=== PATIENT | male | born 1965 | race Two or more races ===

== ENCOUNTER → 2018-03-01 | Outpatient (CLI) | payer SELFPAY ==
--- NOTE | 2018-03-01 08:05 | US ---
EXAMINATION TYPE: US venous doppler duplex LE LT DATE OF EXAM: 03/01/2018 7:56 AM COMPARISON: NONE CLINICAL HISTORY: M79.605 Pain in left lower limb. Pain in the left leg. Patient is a dairy truck driver , long-term travel. SIDE PERFORMED: Left TECHNIQUE: The lower extremity deep venous system is examined utilizing real time linear array sonog aurea with graded compression, doppler sonography and color-flow sonography. VESSELS IMAGED: External Iliac Vein (EIV) Common Femoral Vein Deep Femoral Vein Greater Saphenous Vein * Femoral Vein Popliteal Vein Small Saphenous Vein * Proximal Calf Veins (* superficial vessels) Left Leg: Negative for DVT Grayscale, color doppler, spectral doppler imaging performed of the deep veins of the left lower extr emity. There is normal flow, compressibility, vascular waveforms. IMPRESSION: No ultrasound evidence for acute DVT in the left lower extremity.
== END | disposition home or self-care (01) ==
LOC: RADUSWWP 07:37
PROVIDERS: ATTEND Family Medicine
DX: M79.605 Pain in left leg (principal)

== ENCOUNTER 2020-05-27 19:23 | Emergency (ER) | payer SELFPAY ==
[2020-05-27 19:32] VITALS: BP 200/90; PULSE 71; RESP 16; TEMP 98.2
[2020-05-27] MEDS ORDERED: WATER FOR IRRIG, STERILE 1,000 ML BTL IRRIGATION ONE (19:51)
[2020-05-27] MEDS ORDERED: LIDOCAINE 1% INJ 10MG/ML (20 ML MDV) SQ ONE (19:51)
[2020-05-27] MEDS ORDERED: DIPH,PERTUS(ACELL)TETVAC-LF 0.5 ML VIAL IM ONE (19:53)
--- NOTE | 2020-05-27 19:56 | ED ---
Wound/Laceration HPI - General Chief Complaint: Wound/Laceration Stated Complaint: right hand injury Time Seen by Provider: 05/27/20 19:47 Source: patient Mode of arrival: ambulatory Limitations: no limitations - History of Present Illness Initial Comments: 54-year-old male patient presents to the emergency department today for evaluation of laceration to the home all the left hand. Patient states that he was using a knife and cutting towards him and he slipped and the knife cut his palm. Patient states he was able to get the bleeding under control this started to develop bruising around the area and was concerned for infection. He denies any difficulty with range of motion. Denies significant pain to the area. He denies any other injuries. Unsure when his last tetanus vaccine was administered. Patient denies any headache, neck pain, back pain, chest pain, shortness of breath, dizziness, weakness, abdominal pain, nausea, vomiting, or difficulties with bowel movements or urination. Denies any use of anticoagulants or antiplatelet medications. - Related Data Allergies Allergy/AdvReac Type Severity Reaction Status Date / Time No Known Allergies Allergy Verified 05/27/20 19:32 Review of Systems ROS Statement: Those systems with pertinent positive or pertinent negative responses have been documented in the HPI. ROS Other: All systems not noted in ROS Statement are negative. Past Medical History Past Medical History: No Reported History History of Any Multi-Drug Resistant Organisms: None Reported Past Surgical History: No Surgical Hx Reported Past Psychological History: No Psychological Hx Reported Smoking Status: Never smoker Past Alcohol Use History: None Reported Past Drug Use History: None Reported General Exam Limitations: no limitations General appearance: alert, in no apparent distress, other (This is a well- developed, well-nourished adult male patient in no acute distress. Vital signs upon presentation are temperature 98.2F. Pulse 71, respirations 16, blood pressure 200/90, pulse ox 100% on room air.) Respiratory exam: Present: normal lung sounds bilaterally. Absent: respiratory distress, wheezes, rales, rhonchi, stridor Cardiovascular Exam: Present: regular rate, normal rhythm, normal heart sounds. Absent: systolic murmur, diastolic murmur, rubs, gallop, clicks Extremities exam: Present: full ROM, normal capillary refill, other (There is a 3 cm laceration noted to the palmar aspect of the left hand over the hyperthenar eminence. There is no active bleeding. There is mild surrounding ecchymosis. Patient is range of motion of the wrist and fingers. Radial pulses 2+ and equal bilaterally. Skin is otherwise pink warm and dry.). Absent: normal inspection, tenderness, pedal edema, joint swelling, calf tenderness Neurological exam: Present: alert, oriented X3, CN II-XII intact Psychiatric exam: Present: normal affect, normal mood Skin exam: Present: warm, dry, intact, normal color. Absent: rash Course Vital Signs 05/27/20 19:29 Temperature 98.2 F Pulse Rate 71 Respiratory 16 Rate Blood Pressure 200/90 O2 Sat by Pulse 100 Oximetry Procedures - Laceration Laceration #1 Consent Obtained: verbal consent Indication: laceration Site: hand Size (cm): 3 Description: linear Depth: simple, single layer Anesthetic Used: lidocaine 1% Anesthesia Technique: local infiltration Amount (mls): 4 Pre-repair: wound explored, irrigated extensively Type of Sutures: nylon Size of Sutures: 4-0 Number of Sutures: 4 Technique: simple, interrupted Patient Tolerated Procedure: well, no complications Medical Decision Making - Medical Decision Making 54-year-old male patient presents to the emergency department today for evaluat ion of laceration to the left hand. Physical examination did reveal 3 cm laceration to the hyperthenar eminence. Bleeding was controlled. There is some surrounding ecchymosis. Laceration was cleansed and repaired as documented. Patient be discharged to follow-up with his primary care physician for recheck in 1-2 days. Patient is instructed to return in 7 days to have the stitches removed. Return parameters were discussed in detail. He verbalizes understanding and agrees with this plan. Disposition Clinical Impression: Laceration of left hand Disposition: HOME SELF-CARE Condition: Good Instructions (If sedation given, give patient instructions): Care For Your Stitches (ED), Laceration (ED) Additional Instructions: Cleanse wound twice daily with warm water and antibacterial soap. Keep clean and dry. Do not submerge your hand in water. Return in 7 days to have the stitches removed. Monitor for signs or symptoms of infection including but not limited to redness, swelling, drainage of pus, fever, or chills. Follow-up through primary care physician for recheck in 1-2 days. Return to the emergency department immediately for any new, worsening, or concerning symptoms. Is patient prescribed a controlled substance at d/c from ED?: No Referrals: Bi Rooney MD [Primary Care Provider] - 1-2 days Time of Disposition: 20:16
[2020-05-27] MEDS ORDERED: BACITRACIN OINT 1 EACH PACKET TOPICAL ONE (20:19)
== END 2020-05-27 20:32 | disposition home or self-care (01) ==
LOC: EC 19:23
DX: S61.412A Laceration without foreign body of left hand, initial encounter (principal); W26.0XXA Contact with knife, initial encounter; Z23 Encounter for immunization; Y93.89 Activity, other specified
CPT/HCPCS: 90715; 90471; 99283; 12002; J2001